=== PATIENT | female | born 1955 | race Caucasian/White ===

== ENCOUNTER → 2017-03-30 12:15 | Outpatient (CLI) | payer SELFPAY ==
--- NOTE | 2017-03-29 | BRBX_PTH ---
PATIENT: SANG NORMAN [facility] U#:[id number] AGE/SX: 69/F ROOM: RE03/30/[address]: Dr. Cindy Kline MD : 1955 BED: DIS: SPEC #: [id number] RECD: 03/30/17 11:48 STATUS: OMAR VALORIE #: [id number] TWIN: 03/29/17 00:[address]: Cindy Kline DEPT: SURGICAL PATHOLOGY RECD BY: Julio Hawley ENTERED: 03/30/17 13:23 SP TYPE: BREAST BX OTHR DR: Dr. Lennox Webber MD Tissues: A - Right breast, NOS B - Left breast, NOS Procedures: Surgery Specimen Level IV HEADER OPERATION: Ultrasound-guided mammotome right and left breast PRE-OP DIAGNOSIS: Abnormal mammogram right and left breast TISSUE SUBMITTED: A ? Right breast biopsy, B ? Left breast biopsy MICROSCOPIC DIAGNOSIS A. Right breast, ultrasound-guided mammotome core biopsy: Hyalinized fibroadenoma. Focal changes consistent with adenosis. Negative for atypia or malignancy in the submitted specimen. B. Left breast, ultrasound-guided mammotome core biopsy: Fragments of benign breast tissue, no significant histopathologic abnormality. See comment. IFEANYI:fredy 03/31/17 COMMENT B. Correlation with clinical, radiologic findings and appropriate follow up are necessary. MICROSCOPIC DESCRIPTION Slides are reviewed. GROSS DESCRIPTION A - Received in fixative is one container labeled with the patient's name and designated R. The specimen consists of multiple elongated fragments of obrien-yellow fibroadipose tissue that in aggregate measure 2.5 x 2 x 0.3 cm. The entire specimen is submitted in one cassette. B - Received in fixative is one container labeled with the patient's name and designated L. The specimen consists of multiple elongated fragments of obrien-yellow fibroadipose tissue that in aggregate measure 2.5 x 2 x 0.2 cm. The entire specimen is submitted in one cassette. / IFEANYI:fredy 03/30/17 TC:1 CPT: 38328 x2
== END ==
PROVIDERS: Family Provider Family Medicine; PCP Family Medicine; Visit Provider Surgery
DX: R92.8 Other abnormal and inconclusive findings on diagnostic imaging of breast (principal)
CPT/HCPCS: 88305